=== PATIENT | male | born 1965 | race Caucasian/White ===

== ENCOUNTER 2020-08-01 11:15 | Emergency (ER) | payer BC ==
[2020-08-01 11:19] VITALS: BP 158/98; PULSE 87; RESP 18; TEMP 97.8
[2020-08-01] MEDS ORDERED: APIXABAN 5 MG TAB PO STA (11:31)
--- NOTE | 2020-08-01 11:33 | ED ---
Extremity Problem HPI - General Chief complaint: Extremity Problem,Nontraumatic Stated complaint: Sent by PCP/blood clot Time Seen by Provider: 08/01/20 11:21 Source: patient, RN notes reviewed Mode of arrival: wheelchair Limitations: no limitations - History of Present Illness Initial comments: This a 55-year-old male presents emergency Department chief complaint of left leg pain. Patient had an MRI today which was ordered by his orthopedic surgeon. Patient states that he was called and sent to the hospital for ultrasound. Patient has a positive DVT. Patient states he had an injury a past but states that he has not been ambulating much. Patient states there is no history of DVT denies any chest pain shortness of breath no clotting disorders. - Related Data Previous Rx's Medication Instructions Recorded Apixaban [Eliquis Starter Pack 0 mg PO DIRECTED 30 Days #1 pack 08/01/20 (for VTE)] Allergies Allergy/AdvReac Type Severity Reaction Status Date / Time No Known Allergies Allergy Verified 08/01/20 11:19 Review of Systems ROS Statement: Those systems with pertinent positive or pertinent negative responses have been documented in the HPI. ROS Other: All systems not noted in ROS Statement are negative. Past Medical History Additional Past Medical History / Comment(s): gout History of Any Multi-Drug Resistant Organisms: None Reported Past Surgical History: No Surgical Hx Reported Past Psychological History: No Psychological Hx Reported Smoking Status: Never smoker Past Alcohol Use History: Occasional Past Drug Use History: None Reported General Exam Limitations: no limitations General appearance: alert, in no apparent distress Head exam: Present: atraumatic, normocephalic, normal inspection Eye exam: Present: normal appearance, PERRL, EOMI. Absent: scleral icterus, conjunctival injection, periorbital swelling ENT exam: Present: normal exam, normal oropharynx, mucous membranes moist Neck exam: Present: normal inspection, full ROM. Absent: tenderness, meningismus, lymphadenopathy Respiratory exam: Present: normal lung sounds bilaterally. Absent: respiratory distress, wheezes, rales, rhonchi, stridor Cardiovascular Exam: Present: regular rate, normal rhythm, normal heart sounds. Absent: systolic murmur, diastolic murmur, rubs, gallop, clicks Extremities exam: Present: normal capillary refill, calf tenderness (left). Absent: pedal edema Skin exam: Present: warm, dry, intact, normal color. Absent: rash Course Vital Signs 08/01/20 11:17 Temperature 97.8 F Pulse Rate 87 Respiratory 18 Rate Blood Pressure 158/98 O2 Sat by Pulse 100 Oximetry Medical Decision Making - Medical Decision Making Patient has a positive ultrasound for DVT of the left extremity. Patient patient symptoms started after injury at rest ball in limited ambulation. He has no chest pain shortness breath vitals are stable there is no concern for PE. Patient advised that needs follow-up with PCP within the week is return for any worsening change in symptoms. Patient was instructed risk of blood thinners. Patient agrees and all questions answered Disposition Clinical Impression: Left leg DVT Disposition: HOME SELF-CARE Condition: Stable Instructions (If sedation given, give patient instructions): Deep Vein Thrombosis (ED) Additional Instructions: Please return to the Emergency Department if symptoms worsen or any other concerns. Prescriptions: Apixaban [Eliquis Starter Pack (for VTE)] 0 mg PO DIRECTED 30 Days #1 pack Is patient prescribed a controlled substance at d/c from ED?: No Referrals: Sana Fall DO [Primary Care Provider] - 1-2 days Time of Disposition: 11:32
== END 2020-08-01 11:38 | disposition home or self-care (01) ==
LOC: EC 11:15
DX: I82.402 Acute embolism and thrombosis of unspecified deep veins of left lower extremity (principal)
CPT/HCPCS: 99283

== ENCOUNTER → 2020-08-01 | Outpatient (CLI) | payer BC ==
--- NOTE | 2020-08-01 11:45 | US ---
EXAMINATION TYPE: US venous doppler duplex LE LT DATE OF EXAM: 08/01/2020 11:02 AM COMPARISON: NONE CLINICAL HISTORY: M25.562 LT KNEE PAIN,M25.362. SIDE PERFORMED: Left TECHNIQUE: The lower extremity deep venous system is examined utilizing real time linear array sonog rodriguez with graded compression, doppler sonography and color-flow sonography. VESSELS IMAGED: Common Femoral Vein Deep Femoral Vein Greater Saphenous Vein * Femoral Vein Popliteal Vein Small Saphenous Vein * Proximal Calf Veins (* superficial vessels) Left Leg: Positive for DVT in the posterior tibial veins. There is minimal trickle flow and vessels are not compressible. IMPRESSION: 1. Exam positive for DVT posterior tibial vein
== END | disposition home or self-care (01) ==
LOC: RADUSWWP 10:39
PROVIDERS: ATTEND Orthopaedic Surgery
DX: I82.442 Acute embolism and thrombosis of left tibial vein (principal)